=== PATIENT | female | born 1985 | race African-American/Black ===

== ENCOUNTER 2020-11-28 21:01 | Emergency (ER) | payer OTHER, MEDICAID, SELFPAY ==
[2020-11-28 21:33] VITALS: BP 138/81; PULSE 93; RESP 18; TEMP 36.8; O2SAT 100; BMI 21.6
--- NOTE | 2020-11-28 21:48 | PC.NURSE ---
Covid swab obtained and sent.
[2020-11-28 22:12] LABS: COVID-19 Test Negative (Negative); IDNOW Serial# 9DD0AD1C
--- NOTE | 2020-11-28 22:29 | ED_ITS ---
HPI - General Adult General Chief complaint: General Medical Stated complaint: congestion Time Seen by Provider: 11/28/20 22:24 Source: patient Mode of arrival: ambulatory Limitations: no limitations History of Present Illness HPI narrative: 35 y/o otherwise healthy female presents to the ER with 4-5 days of nasal congestion. She states her nose has been a faucet and running with clear nasal discharge. She is having trouble sleeping at night due to the congestion. She also has itchy, watery eyes. No sore throat, fever, chills, cough, N/V, SOB. She has never had seasonal allergies before. No sick contacts. MD complaint: runny nose Onset (ago): day(s) (5) Location: face Radiation: non-radiation Severity: moderate Quality: aching Pain Consistency: intermittent Relieving factors: none Exacerbating factors: none Associated symptoms: denies other symptoms Treatments prior to arrival: none Related Data Previous Rx's Medication Instructions Recorded cetirizine [Zyrtec] 10 mg PO DAILY #30 tab 11/28/20 fluticasone propionate [Flonase 1 spray INTRANASAL BID #16 g 11/28/20 Allergy Relief] Allergies Allergy/AdvReac Type Severity Reaction Status Date / Time No Known Allergies Allergy Verified 11/28/20 21:39 Review of Systems Review of Systems: Constitutional: No Fever, No Chills ENT/Mouth: No sore throat, + Rhinorrhea, No Swallowing Difficulty Eyes: No Eye Pain, No Swelling, No Redness Cardiovascular: No Chest Pain, No SOB Respiratory: No Cough, No Sputum Gastrointestinal: No Nausea, No Vomiting, No Diarrhea, No abdominal Pain Musculoskeletal: No joint pain, No Myalgias Neuro: No Headache Heme/Lymph: No Bruising, No Lymphadenopathy PMFSH Past Medical History Attestation statement: The following information was validated with the patient. Medical History (Updated 11/28/20 @ 22:30 by VIRGILIO Saldana) Asthma delivery delivered Social History Social History Advance Directives: No Advance Directives Information Provided: No Patient : No Physical Exam Vital Signs: Vital Signs: Last Vital Signs Temp 98.2 F 11/28/20 21:33 Pulse 93 11/28/20 21:33 Resp 18 11/28/20 21:33 BP 138/81 11/28/20 21:33 Pulse Ox 100 11/28/20 21:33 Body Mass Index 21.6 Appearance: Alert. Oriented X3. No acute distress. Eyes: Pupils equal, round and reactive to light. ENT: TM's normal bilaterally, pharynx with some mild generalized erythema, no tonsillar exudates or swelling, uvula midline. nasal turbinates are erythematous and swollen, copious clear nasal discharge in both nares. Neck: Normal inspection. Neck supple. CVS: Normal heart rate and rhythm. Pulses normal. Respiratory: No respiratory distress. Breath sounds normal. Skin: Skin warm and dry. Normal skin color. Normal skin turgor. No rashes. Extremities: No lower extremity edema. Neuro: Oriented X 3. Non-focal. Course Course Course Narrative: 35 y/o female presenting with signs and symptoms of seasonal allergies including rhinorrhea and itchy,watery eyes. COVID is negative. VS are normal. No signs of infection. Will treat with IN steroid, Zyrtec and PRN benadryl. Patient has been counseled. She is stable for discharge home. Medical Decision Making Lab Data Labs: Lab Results 11/28/20 Range/Units 21:41 COVID-19 ([facility]) Negative (Negative) COVID-19 Clin Com See Note Discharge Plan Discharge Clinical Impression: Allergic rhinitis Qualifiers: Allergic rhinitis trigger: unspecified Allergic rhinitis seasonality: unspecified Qualified Code(s): J30.9 - Allergic rhinitis, unspecified Patient Disposition: Home, Self-Care Instructions: Allergic Rhinitis (ED), Allergies (ED) Additional Instructions: Your COVID test was NEGATIVE today. Take the prescribed medications for allergy symptoms. Recommend Benadryl 25-50 mg at night. Follow up with your doctor next week. If you have worsening symptoms come back to the ER for further evaluation. Prescriptions: New fluticasone propionate [Flonase Allergy Relief] 50 mcg/actuation spray, suspension 1 spray intranasal BID Qty: 16 RF: 0 cetirizine [Zyrtec] 10 mg tablet 10 mg PO DAILY Qty: 30 RF: 0
== END 2020-11-28 22:40 | disposition home or self-care (01) ==
PROVIDERS: Emergency Provider Emergency Medicine
DX: R09.81 Nasal congestion (principal); J30.9 Allergic rhinitis, unspecified; Z20.822 Contact with and (suspected) exposure to COVID-19; Z79.899 Other long term (current) drug therapy
CPT/HCPCS: 36415; 87635; 99284

== ENCOUNTER 2021-03-25 23:48 | Emergency (ER) | payer OTHER, SELFPAY ==
[2021-03-26 00:10] VITALS: BP 123/83; PULSE 104; RESP 20; TEMP 36.3; O2SAT 98; BMI 22.1
--- NOTE | 2021-03-26 01:59 | ED_ITS ---
HPI - Wound/Laceration General Chief Complaint: Wound/Laceration Stated Complaint: lac Time Seen by Provider: 03/26/21 00:28 Source: patient Mode of arrival: ambulatory Limitations: no limitations History of Present Illness HPI narrative: Patient comes emergency room complaining of a laceration to the 3rd and 4th fingers. Patient states she was washing dishes, she accidentally grabbed a knife and sustained a laceration to those fingers on the palmar side, left hand. Related Data Previous Rx's Medication Instructions Recorded cetirizine 10 mg tablet (Zyrtec) 10 mg PO DAILY #30 tab 11/28/20 fluticasone propionate 50 1 spray INTRANASAL BID #16 g 11/28/20 mcg/actuation nasal spray,suspension (Flonase Allergy Relief) Allergies Allergy/AdvReac Type Severity Reaction Status Date / Time No Known Allergies Allergy Verified 03/26/21 00:15 Review of Systems Review of Systems: Constitutional : No Weight loss, No Fever, No Chills, No Night Sweats, No Fatigue, No Malaise ENT/Mouth : No Hearing loss, No Ear Pain, No Nasal Congestion, No Sinus Pain, No Hoarseness, No sore throat, No Rhinorrhea, No Swallowing Difficulty Eyes: No Eye Pain, No Swelling, No Redness, No Foreign Body, No Discharge, No Vision Changes Cardiovascular : No Chest Pain, No SOB, No Dyspnea on Exertion, No Orthopnea, No Edema, No Palpitations Respiratory : No Cough, No Sputum, No Wheezing, No Smoke Exposure, No Dyspnea Gastrointestinal : No Nausea, No Vomiting, No Diarrhea, No Constipation, No abdominal Pain, No Hematochezia, No Melena Genitourinary : no irregular bleeding, No Dysuria, No Urinary Frequency, No Hematuria, No Urinary Incontinence, No Urgency, No Flank Pain, No Urinary Flow Changes, No Hesitancy Musculoskeletal : No joint pain, No Myalgias, No Joint Swelling Skin : Laceration to the hand/fingers left side Neuro : No Weakness, No Numbness, No Paresthesias, No Loss of Consciousness, No Dizziness, No Headache Psych : No Anxiety/Panic, No Depression, No SI/HI/AH/VH, No Social Issues, Heme/Lymph: No Bruising, No Bleeding,No Lymphadenopathy Endocrine : No Polyuria, No Polydipsia, No Temperature Intolerance [facility] Past Medical History Medical History Asthma delivery delivered Social History Social History Advance Directives: No Advance Directives Information Provided: Yes Patient : No Physical Exam Vital Signs: Vital Signs: Last Vital Signs Temp 97.4 F 03/26/21 00:10 Pulse 104 H 03/26/21 00:10 Resp 20 03/26/21 00:10 BP 123/83 03/26/21 00:10 Pulse Ox 98 03/26/21 00:10 Body Mass Index 22.1 Const: Other: Appearance: Alert. Oriented X3. No acute distress. Eyes: Pupils equal, round and reactive to light. ENT: Pharynx normal. Neck: Normal inspection. Neck supple. No lymph nodes noted. No crepitus CVS: Normal heart rate and rhythm. Pulses normal. Normal S1 and S2 Respiratory: No respiratory distress. Breath sounds normal. No Wheezing. No rales Abdomen: Soft and nontender. No rigidity. No distention. good BS x4 Skin: Skin warm and dry. Deep laceration to the 3rd and 4th digits palmar aspect of left hand Extremities: No lower extremity edema. No lower extremity edema. No Lacerations. No Rash Neuro: Oriented X 3. No motor deficit. No sensory deficit. Moving all extermities. No slurred speech. Course Course Course Narrative: Patient tolerated well the sutures Procedures Laceration Laceration 1: Side (If applicable): left Size (cm): 1.5 Description: linear Local Anesthetic: lidocaine 2% Amount of anesthesia used (mL): 3 Skin layer closed with: nylon Size (cm): 5-0 Number of sutures: 7 Laceration 2: Side (If applicable): left Size (cm): 1 Description: linear Local Anesthetic: lidocaine 2% Amount of anesthesia used (mL): 4 Size (cm): 5-0 Number of sutures: 4 Discharge Plan Discharge Clinical Impression: Laceration Patient Disposition: Home, Self-Care Instructions: Laceration (ED) Additional Instructions: Your sutures need to be removed in 7-10 days. Please follow-up with your primary care physician tomorrow. If you have any worsening or new symptoms, please return to the emergency room or call 911 Prescriptions: No Action fluticasone propionate [Flonase Allergy Relief] 50 mcg/actuation spray,suspension 1 spray intranasal BID Qty: 16 RF: 0 cetirizine [Zyrtec] 10 mg tablet 10 mg PO DAILY Qty: 30 RF: 0 Stand Alone Forms: Work/School Release
--- NOTE | 2021-03-26 04:10 | PC.NURSE ---
0230 -Lidocaine was given to provider for suturing purposes. Lidocaine vials discarded by provider prior to being able to be scanned.' Pt tolerated procedure without difficulty. Explained cleaning process along with plans for suture removal. Pt aware and agreeable to plan.
== END 2021-03-26 02:30 | disposition home or self-care (01) ==
PROVIDERS: Emergency Provider Emergency Medicine; PCP Physician Assistant Medical
DX: S61.213A Laceration without foreign body of left middle finger without damage to nail, initial encounter (principal); S61.215A Laceration without foreign body of left ring finger without damage to nail, initial encounter; W26.0XXA Contact with knife, initial encounter; Y93.G1 Activity, food preparation and clean up; Y92.010 Kitchen of single-family (private) house as the place of occurrence of the external cause; Y99.9 Unspecified external cause status
CPT/HCPCS: 12001; 99283; 99284

== ENCOUNTER 2021-04-05 15:29 | Emergency (ER) | payer OTHER, SELFPAY ==
[2021-04-05 16:00] VITALS: BP 116/64; PULSE 71; RESP 18; TEMP 36.7; O2SAT 100; BMI 22.1
--- NOTE | 2021-04-05 17:15 | ED_ITS ---
HPI - Wound/Laceration General Chief Complaint: Wound/Laceration Stated Complaint: suture removal Time Seen by Provider: 04/05/21 17:05 Source: patient Mode of arrival: ambulatory Limitations: no limitations History of Present Illness HPI narrative: Patient is a 35-year-old female who cut her right 3rd and 4th digit on 03/26 with a knife, she came to this ED where 7 sutures were applied to the 4th digit and 4 sutures were applied to the 3rd digit. Patient denies any pain, abnormal discharge or tenderness to the area. She does say that on her 4th digit she does not have feeling in the tip of her finger. Related Data Previous Rx's Medication Instructions Recorded cetirizine 10 mg tablet (Zyrtec) 10 mg PO DAILY #30 tab 11/28/20 fluticasone propionate 50 1 spray INTRANASAL BID #16 g 11/28/20 mcg/actuation nasal spray,suspension (Flonase Allergy Relief) Allergies Allergy/AdvReac Type Severity Reaction Status Date / Time No Known Allergies Allergy Verified 03/26/21 00:15 Review of Systems Review of Systems: Yes all other systems are reviewed and are negative [facility] Past Medical History Medical History Asthma delivery delivered Social History Social History Advance Directives: No Advance Directives Information Provided: No Patient : No Physical Exam Vital Signs: Vital Signs: Last Vital Signs Temp 98.0 F 04/05/21 16:00 Pulse 71 04/05/21 16:00 Resp 18 04/05/21 16:00 BP 116/64 04/05/21 16:00 Pulse Ox 100 04/05/21 16:00 Body Mass Index 22.1 Const: General: cooperative, healthy appearing, comfortable, no acute distress and well developed Orientation/consciousness: patient oriented x3 Limitations: no limitations Skin: Other: Right hand, 3rd and 4th digits, sutures clean dry and intact, wound is healing well with no signs of infection noted. Patient is vascularly intact but does not have feeling of sensation in her 4th digit. Sutures removed, a total of 11. Neuro: General: patient oriented x3 Course Course Course Narrative: Eleven sutures removed, patient tolerated well, no complications. Discharge Plan Discharge Clinical Impression: Encounter for removal of sutures Patient Disposition: Home, Self-Care Instructions: Stitches Removal (ED) Additional Instructions: Can wash with regular soap and water, you do not need to apply any specific products besides a Band-Aid if you go out into public for the next few days. If you notice any drainage, redness or increased tenderness, please follow-up with your primary care doctor or urgent care or return to the emergency department. Prescriptions: No Action fluticasone propionate [Flonase Allergy Relief] 50 mcg/actuation spray,suspension 1 spray intranasal BID Qty: 16 RF: 0 cetirizine [Zyrtec] 10 mg tablet 10 mg PO DAILY Qty: 30 RF: 0
== END 2021-04-05 17:37 | disposition home or self-care (01) ==
PROVIDERS: Emergency Provider Emergency Medicine; PCP Physician Assistant Medical
DX: Z48.02 Encounter for removal of sutures (principal); Z79.899 Other long term (current) drug therapy
CPT/HCPCS: 99283; 99284